=== PATIENT | male | born 1980 | race American Indian/Alaskan Native ===

== ENCOUNTER 2018-01-26 01:32 | Emergency (ER) | payer SELFPAY ==
[2018-01-26 02:19] LABS: Basophils # (Auto) 0.1 K/mm3 (0.0-0.1); Basophils % (Auto) 0.8 % (0.0-1.8); Eosinophils % (Auto) 0.3 % (0.0-4.3); Hematocrit 43.2 % (35.5-45.6); Hemoglobin 13.9 gm/dl (11.8-15.2); Lymphocytes # (Auto) 1.5 K/mm3 (1.2-5.4); Lymphocytes % (Auto) 21.2 % (13.4-35.0); Mean Corpuscular HGB Conc 32 % (32-34); Mean Corpuscular Volume 72 fl (84-94); Monocytes # (Auto) 0.6 K/mm3 (0.0-0.8); Monocytes % (Auto) 9.1 % (0.0-7.3); Platelet Count 326 K/mm3 (140-440); Red Cell Distribution Width 15.6 % (13.2-15.2)
[2018-01-26 02:20] LABS: Mean Corpuscular Hemoglobin 23 pg (28-32)
[2018-01-26] MEDS ORDERED: ATIVAN IM PRN (02:21)
[2018-01-26] MEDS ORDERED: HALDOL IM PRN (02:21)
--- NOTE | 2018-01-26 02:22 | Emergency Department Report ---
ED General Adult HPI - General Chief complaint: Psych Stated complaint: THROWING UP, ASKING FOR PSYCH Time Seen by Provider: 01/26/18 02:21 Source: patient, EMS (ems notes not available at time of chart dictation), RN notes reviewed Mode of arrival: Ambulatory Limitations: Other (she is disorganized. The patient is a poor historian. No family or friends are available for collateral information. EMS documentation not available at this time.) - History of Present Illness Initial comments: This is a 37-year-old male who is unknown to this provider, brought to the hospital by EMS from a local hotel. The patient reports that he was trying to throw up at the hotel. He denies headache, neck pain, chest pain, abdominal pain, shortness of breath, homicidality, suicidality. The patient is very disorganized, he is a poor historIan and he cannot tell me if he has any psychiatric history. , -: unknown Radiation: other Quality: other Improves with: other Worsens with: other Associated Symptoms: denies: confusion, chest pain, cough, diaphoresis, fever/ chills, headaches, loss of appetite, malaise, nausea/vomiting, rash, seizure, shortness of breath, syncope, weakness - Related Data Home Medications Medication Instructions Recorded Confirmed Last Taken Unobtainable 01/26/18 01/26/18 Unknown Allergies Allergy/AdvReac Type Severity Reaction Status Date / Time No Known Allergies Allergy Unverified 01/26/18 01:48 ED Review of Systems ROS: Stated complaint: THROWING UP, ASKING FOR PSYCH Other details as noted in HPI Constitutional: denies: fever Eyes: denies: eye discharge ENT: denies: epistaxis Respiratory: denies: cough Cardiovascular: denies: chest pain, palpitations Gastrointestinal: denies: abdominal pain Genitourinary: denies: dysuria Musculoskeletal: denies: back pain Neurological: denies: weakness Psychiatric: denies: homicidal thoughts, suicidal thoughts ED Past Medical Hx - Past Medical History Previous Medical History?: No - Surgical History Past Surgical History?: No - Social History Smoking Status: Unknown if ever smoked Substance Use Type: None - Medications Home Medications: Home Medications Medication Instructions Recorded Confirmed Last Taken Type Unobtainable 01/26/18 01/26/18 Unknown History ED Physical Exam - General Limitations: No Limitations, Other (patient disorganized and is a poor historian ) General appearance: alert, anxious - Head Head exam: Present: atraumatic, normocephalic - Eye Eye exam: Present: normal appearance, EOMI, other (visual acuity intact to finger counting, color perception, reading at a close distance). Absent: nystagmus - ENT ENT exam: Present: normal exam, normal orophraynx, mucous membranes moist, normal external ear exam - Neck Neck exam: Present: normal inspection, full ROM. Absent: tenderness, meningismus - Respiratory Respiratory exam: Present: normal lung sounds bilaterally. Absent: respiratory distress - Cardiovascular Cardiovascular Exam: Present: regular rate, normal rhythm, normal heart sounds. Absent: bradycardia, tachycardia, irregular rhythm, systolic murmur, diastolic murmur, rubs, gallop - GI/Abdominal GI/Abdominal exam: Present: soft, normal bowel sounds. Absent: distended, tenderness, guarding, rebound, rigid, pulsatile mass - Rectal Rectal exam: Present: deferred - Extremities Exam Extremities exam: Present: normal inspection. Absent: tenderness, pedal edema, calf tenderness - Back Exam Back exam: Present: normal inspection. Absent: tenderness, CVA tenderness (R), paraspinal tenderness - Neurological Exam Neurological exam: Present: alert, CN II-XII intact, normal gait, other ( Extraocular movements intact. Tongue midline. No facial droop. Facial sensation intact to light touch in the V1, V2, V3 distribution bilaterally. 5 and 5 strength in 4 extremities.. Sensation is intact to light touch in 4 extremities.). Absent: motor sensory deficit - Psychiatric Psychiatric exam: Present: anxious. Absent: homicidal ideation, suicidal ideation - Skin Skin exam: Present: warm, dry, intact, normal color. Absent: rash ED Course Vital Signs 01/26/18 01:48 Temperature 98.2 F Pulse Rate 98 H Respiratory 18 Rate Blood Pressure 139/92 O2 Sat by Pulse 97 Oximetry ED Medical Decision Making - Lab Data Result diagrams: 01/26/18 02:03 01/26/18 02:03 Vital Signs 01/26/18 01:48 Temperature 98.2 F Pulse Rate 98 H Respiratory 18 Rate Blood Pressure 139/92 O2 Sat by Pulse 97 Oximetry Labs 01/26/18 01/26/18 01/26/18 02:03 02:03 02:03 WBC RBC Hgb Hct MCV MCH MCHC RDW Plt Count Lymph % (Auto) [place] % (Auto) Eos % (Auto) Baso % (Auto) Lymph # [place] # Eos # Baso # Seg Neutrophils % Seg Neutrophils # Sodium 140 Potassium 4.1 Chloride 100.6 Carbon Dioxide 28 Anion Gap 16 BUN 11 Creatinine 1.4 Estimated GFR > 60 BUN/Creatinine Ratio 8 Glucose 107 H Calcium 9.6 Salicylates < 0.3 L Acetaminophen < 5.0 L Plasma/Serum Alcohol 01/26/18 01/26/18 02:03 02:03 WBC 7.0 RBC 6.00 H Hgb 13.9 Hct 43.2 MCV 72 L MCH 23 L MCHC 32 RDW 15.6 H Plt Count 326 Lymph % (Auto) 21.2 [place] % (Auto) 9.1 H Eos % (Auto) 0.3 Baso % (Auto) 0.8 Lymph # 1.5 [place] # 0.6 Eos # 0.0 Baso # 0.1 Seg Neutrophils % 68.6 Seg Neutrophils # 4.8 Sodium Potassium Chloride Carbon Dioxide Anion Gap BUN Creatinine Estimated GFR BUN/Creatinine Ratio Glucose Calcium Salicylates Acetaminophen Plasma/Serum Alcohol < 0.01 - Medical Decision Making Differential diagnosis, including but not limited to: Mood disorder, psychosis, medical clearance for psychiatric placement Assessment and plan: 37-year-old male who is very disorganized, very anxious, difficult to redirect, afebrile with reassuring vital signs, with no neck pain or neck stiffness, unremarkable apertures studies. Patient is placed on a 1013 for undifferentiated psychosis at this time. Based on the objective information does not appear the psychosis is based on a medical issue. He is medically stable for psychiatric placement, evaluation and consultation at this time. Critical care attestation.: If time is entered above; I have spent that time in minutes in the direct care of this critically ill patient, excluding procedure time. ED Disposition Clinical Impression: Medical clearance for psychiatric admission Disposition: [id number] PSY HOSP/PSY UNIT Is pt being admited?: No Does the pt Need Aspirin: No Condition: Stable Referrals: PRIMARY CARE, [Primary Care Provider] - 3-5 Days
[2018-01-26 02:32] LABS: BUN/Creatinine Ratio 8; Blood Urea Nitrogen 11 mg/dL (9-20); Calcium 9.6 mg/dL (8.4-10.2); Hemolysis Index 2
[2018-01-26 05:54] LABS: Bilirubin,Urine NEG (Negative); Blood,Urine NEG (Negative); Color,Urine Yellow (Yellow); Hyaline Casts,Urine 4 /LPF; Mucus,Urine 3+ /HPF
[2018-01-26 05:58] LABS: Benzodiazepines Screen,Urine PRESUMPTIVE NEGATIVE; Cannabinoid Screen,Urine PRESUMPTIVE NEGATIVE; Methadone Screen,Urine PRESUMPTIVE NEGATIVE; Opiate Screen,Urine PRESUMPTIVE NEGATIVE
[2018-01-26 06:10] LABS: Amphetamine Screen,Urine PRESUMPTIVE POSITIVE; Cocaine Screen,Urine PRESUMPTIVE POSITIVE
--- NOTE | 2018-01-26 14:10 | Consultation ---
History of Present Illness - Reason for Consult Consult date: 01/26/18 Reason for consult: Mental Health Evaluation Requesting physician: NGUYEN VANEGAS - Chief Complaint Chief complaint: "This is a big mistake" - History of Present Psychiatric Illness 37 y.o. AA male presenting to the ER for bizarre behavior. Today the patient is calm, but vague during the assessment. He stated this is a "big mistake" being in the ER. He stated that he came to the ER because he was "throwing up from eating shrimp." He stated residing at a hotel when he started feeling bad. Per the notes, the patient was disorganized during triage. He acknowledged using recreational drugs prior to his admission. He cannot recall why he was placed on a 1013. He denies SI/HI's and AVHs'. Medications and Allergies Allergies Allergy/AdvReac Type Severity Reaction Status Date / Time No Known Allergies Allergy Unverified 01/26/18 01:48 Home Medications Medication Instructions Recorded Confirmed Last Taken Type Unobtainable 01/26/18 01/26/18 Unknown History Active Meds: Active Medications Haloperidol Lactate (Haldol) 5 mg IM Q6HR PRN PRN Reason: Agitation Lorazepam (Ativan) 2 mg IM Q4HR PRN PRN Reason: Agitation Past psychiatric history - Past Medical History Past Medical History: No medical history Past Surgical History: No surgical history - past Psychiatric treatment and history psychiatric treatment history: Denies a psy hx and fam psy hx. - Social History Social history: other (Reside at a hotel) Mental Status Exam - Vital signs Last Vital Signs Temp 98.2 F 01/26/18 10:00 Pulse 108 H 01/26/18 10:00 Resp 18 01/26/18 10:00 BP 148/84 01/26/18 10:00 Pulse Ox 99 01/26/18 10:00 - Exam Narrative exam: MSE: Appearance: calm, cooperative Behavior: regular eye contact Speech: regular rate and tone Mood: "okay" Affect: congruent to mood Thought Process: circumstantial Thought Content: denies SI/HI's and AVH's Motor Activity: lying in bed Cognition: A/O x 3 Insight: variable Judgment: variable Results Result Diagrams: 01/26/18 02:03 01/26/18 02:03 Abnormal lab results 06/01/26/18 01/26/18 Range/Units 02:03 02:03 02:03 RBC (3.65-5.03) M/mm3 MCV (84-94) fl MCH (28-32) pg RDW (13.2-15.2) % [place] % (Auto) (0.0-7.3) % Glucose 107 H (75-100) mg/dL Ur Specific [place] (1.003-1.030) Salicylates < 0.3 L (2.8-20.0) mg/dL Acetaminophen < 5.0 L (10.0-30.0) ug/mL 01/26/18 01/26/18 Range/Units 02:03 03:45 RBC 6.00 H (3.65-5.03) M/mm3 MCV 72 L (84-94) fl MCH 23 L (28-32) pg RDW 15.6 H (13.2-15.2) % [place] % (Auto) 9.1 H (0.0-7.3) % Glucose (75-100) mg/dL Ur Specific [place] 1.031 H (1.003-1.030) Salicylates (2.8-20.0) mg/dL Acetaminophen (10.0-30.0) ug/mL All other labs normal. Assessment and Plan Assessment and plan: Impression: Substance Use DO (cocaine/amphetamines). Today the patient is calm, but vague during the assessment. Recommendation/Plan: Continue 1013 and gather collateral information to help determine proper treatment and dispo.
[2018-01-26] MEDS ORDERED: GEODON IM ONE ×2 (19:39→19:45)
[2018-01-27 06:24] VITALS: BP 142/99
--- NOTE | 2018-01-27 12:56 | Progress Note ---
Subjective - Reason for Consult Consult date: 01/27/18 Reason for consult: Psychiatry Follow-up - Chief Complaint Chief complaint: "I have to stop using drugs" 37 y.o. AA male presenting to the ER for bizarre behavior. Today the patient is calm and cooperative during the assessment. The patient was willing to tell me what happened prior to being placed on a 1013. He is adamant that he was feeling sick prior to coming to the ER. He felt like the staff was taking to long to see him, so he got upset and stated having a "mental issue." Per the patient, the next thing he knew he was placed on a 1013. He stated having a "drug problem" and want help with a referral for rehab services. He denies SI/HI 's and AVH's. He stated being homeless. Mental Status Exam - Vital signs Last Vital Signs Temp 97.4 F L 01/27/18 01:00 Pulse 79 01/27/18 01:00 Resp 18 01/27/18 01:00 BP 142/99 01/27/18 01:00 Pulse Ox 100 01/27/18 01:00 - Exam Narrative exam: MSE: Appearance: calm, cooperative Behavior: regular eye contact Speech: regular rate and tone Mood: "okay" Affect: congruent to mood Thought Process: linear Thought Content: denies SI/HI's and AVH's Motor Activity: lying in bed Cognition: A/O x 3 Insight: appropriate Judgment: appropriate Assessment and Plan Impression: Impression: Substance Use DO (cocaine/amphetamines). Today the patient is calm and cooperative during the assessment. The patient is homeless. The patient is no threat to self. Recommendation/Plan: Rescind 1013. The patient can follow up with [facility] for outpatient rehab services. Discussed the importance to abstain from recreational drug use. Case Mgmt involvement, patient will need assistance with placement.
== END 2018-01-27 14:39 ==
LOC: ED 01:32 → EEVIPCON 01:32 → ED 01-27 14:39
DX: Z02.89 Encounter for other administrative examinations (principal)
CPT/HCPCS: 36415; 80048; 80307; 81001; 85025; 99285; G0480; J3486; 80320